=== PATIENT | male | born 1985 | race Caucasian/White ===

== ENCOUNTER 2020-10-21 00:41 | Emergency (ER) | payer BC ==
--- NOTE | 2020-10-21 00:52 | EDM.PDOC ---
ED HPI GENERAL MEDICAL PROBLEM - General Chief Complaint: Neurological Problem Stated Complaint: ananth amb Time Seen by Provider: 10/21/20 00:46 Source of Information: Reports: Patient, EMS History Limitations: Reports: No Limitations - History of Present Illness INITIAL COMMENTS - FREE TEXT/NARRATIVE: This is a 35-year-old male. Apparently he was found in his car sleeping in the middle of an intersection. The ambulance was called because he was confused when they woke him up and not making a lot of sense when he was talking. When the ambulance brought him here he appears to be groggy though he does not have significantly slurred speech. He is able to give us the month and the year and the day. 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 He denies any alcohol or drug use. He denies any pain or symptoms to speak of. - Related Data Allergies Allergy/AdvReac Type Severity Reaction Status Date / Time No Known Allergies Allergy Verified 12/27/19 17:36 CDT Home Meds: Home Meds . [No Known Home Meds] 04/26/16 [History] Past Medical History - Past Health History Medical/Surgical History: Denies Medical/Surgical History Psychiatric History: Reports: Depression Other Psychiatric History: Uses steroid injections for muscle growth and body building - Infectious Disease History Infectious Disease History: Reports: Chicken Pox Social & Family History - Family History Family Medical History: No Pertinent Family History - Caffeine Use Caffeine Use: Reports: Coffee ED ROS GENERAL - Review of Systems Review Of Systems: See Below Constitutional: Denies: Fever, Chills HEENT: Reports: No Symptoms Respiratory: Denies: Shortness of Breath, Cough Cardiovascular: Reports: No Symptoms Endocrine: Reports: No Symptoms GI/Abdominal: Denies: Abdominal Pain : Reports: No Symptoms Musculoskeletal: Reports: Other (Muscle aching from working out) Skin: Reports: No Symptoms Neurological: Reports: Confusion. Denies: Headache Psychiatric: Reports: Confusion - Physical Exam Exam: See Below Exam Limited By: Altered Mental Status General Appearance: Alert, WD/WN, No Apparent Distress, Lethargic Eye Exam: Bilateral Eye: Normal Inspection, Other ('s are midsized with minimal reaction) Ears: Normal External Exam, Normal Canal, Normal TMs Nose: Normal Inspection Throat/Mouth: Normal Inspection, Normal Lips, Normal Voice, No Airway Compromise Head Exam: Normocephalic Neck: Supple Respiratory/Chest: No Respiratory Distress, Lungs Clear, Normal Breath Sounds Cardiovascular: Regular Rate, Rhythm, No Murmur GI/Abdominal: Soft, Non-Tender Neuro Exam (Abbreviated): Alert, Oriented, Confused, Slow to Respond, Other (He seems confused it at the same time he is able to carry on a conversation. He does have slow speech pattern.) Back Exam: Full Range of Motion Extremities: Normal Inspection, Normal Range of Motion, Other (The patient is somewhat clumsy when attempting to stand or use his arms or take off his shirt but he uses his arms and legs symmetrically.) Psychiatric: Flat Affect Skin Exam: Warm, Dry Course - Vital Signs Last Recorded V/S: Last Vital Signs Temp 98.9 F 10/21/20 00:50 Pulse 88 10/21/20 00:50 Resp 16 10/21/20 00:50 BP 123/93 H 10/21/20 00:50 Pulse Ox 95 10/21/20 00:50 - Orders/Labs/Meds Orders: Active Orders 24 hr Category Date Time Status UA W/MICROSCOPIC [URIN] Stat Lab 10/21/20 03:20 Results Sodium Chloride 0.9% [Normal Saline] 1,000 ml Med 10/21/20 01:00 Active IV ASDIRECTED Medication Orders Sodium Chloride (Normal Saline) 1,000 mls @ 1,000 mls/hr IV ASDIRECTED MARIE Last Admin: 10/21/20 00:55 Dose: 1,000 mls/hr Documented by: SONAL Labs: Laboratory Tests 10/21/20 10/21/20 10/21/20 Range/Units 00:50 00:50 00:50 WBC 6.94 (4.23-9.07) K/mm3 RBC 5.56 (4.63-6.08) M/mm3 Hgb 16.1 (13.7-17.5) gm/dl Hct 49.4 (40.1-51.0) % MCV 88.8 (79.0-92.2) fl MCH 29.0 (25.7-32.2) pg MCHC 32.6 (32.2-35.5) g/dl RDW Std Deviation 46.4 H (35.1-43.9) fL Plt Count 216 (163-337) K/mm3 MPV 8.5 L (9.4-12.3) fl Neut % (Auto) 66.0 (34.0-67.9) % Lymph % (Auto) 20.5 L (21.8-53.1) % [place] % (Auto) 9.1 (5.3-12.2) % Eos % (Auto) 4.0 (0.8-7.0) Baso % (Auto) 0.3 (0.1-1.2) % Neut # (Auto) 4.58 (1.78-5.38) K/mm3 Lymph # (Auto) 1.42 (1.32-3.57) K/mm3 [place] # (Auto) 0.63 (0.30-0.82) K/mm3 Eos # (Auto) 0.28 (0.04-0.54) K/mm3 Baso # (Auto) 0.02 (0.01-0.08) K/mm3 Sodium 143 (136-145) mEq/L Potassium 4.2 (3.5-5.1) mEq/L Chloride 106 (98-107) mEq/L Carbon Dioxide 30 (21-32) mEq/L Anion Gap 11.2 (5-15) BUN 21 H (7-18) mg/dL Creatinine 1.6 H (0.7-1.3) mg/dL Est Cr Clr Drug Dosing TNP Estimated GFR (MDRD) 50 (>60) mL/min BUN/Creatinine Ratio 13.1 L (14-18) Glucose 93 (74-106) mg/dL POC Glucose (70-105) mg/dL Calcium 8.9 (8.5-10.1) mg/dL Total Bilirubin 0.5 (0.2-1.0) mg/dL AST 34 (15-37) U/L ALT 57 (16-63) U/L Alkaline Phosphatase 59 (46-116) U/L Total Protein 7.1 (6.4-8.2) g/dl Albumin 3.6 (3.4-5.0) g/dl Globulin 3.5 gm/dL Albumin/Globulin Ratio 1.0 (1-2) Urine Color (Yellow) Urine Appearance (Clear) Urine pH (5.0-8.0) Ur Specific [place] (1.005-1.030) Urine Protein (Negative) Urine Glucose (UA) (Negative) Urine Ketones (Negative) Urine Occult Blood (Negative) Urine Nitrite (Negative) Urine Bilirubin (Negative) Urine Urobilinogen (0.2-1.0) Ur Leukocyte Esterase (Negative) Urine Opiates Screen (ARBKGP=326) Ur Buprenorphine Scrn (CUTOFF=10) Ur Oxycodone Screen (PZL3NS=483) Urine Methadone Screen (SMA8GS=021) Ur Propoxyphene Screen (KKWBVO=768) Ur Barbiturates Screen (IEIKCM=081) Ur Tricyclics Screen (SPPWPT=285) Ur Phencyclidine Scrn (CUTOFF=25) Ur Amphetamine Screen (KIEZRT=530) U Methamphetamines Scrn (IHVLCS=093) U Benzodiazepines Scrn (NQFXCJ=262) U Cocaine Metab Screen (WCGGTX=709) U Marijuana (THC) Screen (CUTOFF=50) Ethyl Alcohol 0.00 (0.00) gm% 10/21/20 10/21/20 10/21/20 Range/Units 00:51 03:20 03:20 WBC (4.23-9.07) K/mm3 RBC (4.63-6.08) M/mm3 Hgb (13.7-17.5) gm/dl Hct (40.1-51.0) % MCV (79.0-92.2) fl MCH (25.7-32.2) pg MCHC (32.2-35.5) g/dl RDW Std Deviation (35.1-43.9) fL Plt Count (163-337) K/mm3 MPV (9.4-12.3) fl Neut % (Auto) (34.0-67.9) % Lymph % (Auto) (21.8-53.1) % [place] % (Auto) (5.3-12.2) % Eos % (Auto) (0.8-7.0) Baso % (Auto) (0.1-1.2) % Neut # (Auto) (1.78-5.38) K/mm3 Lymph # (Auto) (1.32-3.57) K/mm3 [place] # (Auto) (0.30-0.82) K/mm3 Eos # (Auto) (0.04-0.54) K/mm3 Baso # (Auto) (0.01-0.08) K/mm3 Sodium (136-145) mEq/L Potassium (3.5-5.1) mEq/L Chloride (98-107) mEq/L Carbon Dioxide (21-32) mEq/L Anion Gap (5-15) BUN (7-18) mg/dL Creatinine (0.7-1.3) mg/dL Est Cr Clr Drug Dosing Estimated GFR (MDRD) (>60) mL/min BUN/Creatinine Ratio (14-18) Glucose (74-106) mg/dL POC Glucose 99 (70-105) mg/dL Calcium (8.5-10.1) mg/dL Total Bilirubin (0.2-1.0) mg/dL AST (15-37) U/L ALT (16-63) U/L Alkaline Phosphatase (46-116) U/L Total Protein (6.4-8.2) g/dl Albumin (3.4-5.0) g/dl Globulin gm/dL Albumin/Globulin Ratio (1-2) Urine Color Yellow (Yellow) Urine Appearance Clear (Clear) Urine pH 6.0 (5.0-8.0) Ur Specific [place] > or = 1.030 (1.005-1.030) Urine Protein 1+ H (Negative) Urine Glucose (UA) Negative (Negative) Urine Ketones Negative (Negative) Urine Occult Blood Negative (Negative) Urine Nitrite Negative (Negative) Urine Bilirubin Negative (Negative) Urine Urobilinogen 0.2 (0.2-1.0) Ur Leukocyte Esterase Negative (Negative) Urine Opiates Screen Negative (XKSIVD=952) Ur Buprenorphine Scrn Negative (CUTOFF=10) Ur Oxycodone Screen Negative (MET8YW=655) Urine Methadone Screen Negative (FRC0GN=429) Ur Propoxyphene Screen Negative (JEXUBY=144) Ur Barbiturates Screen Negative (PRUKOG=512) Ur Tricyclics Screen Negative (RJBVSF=361) Ur Phencyclidine Scrn Negative (CUTOFF=25) Ur Amphetamine Screen Negative (OGLAKS=113) U Methamphetamines Scrn Presumptive positive H (YPXOYQ=555) U Benzodiazepines Scrn Negative (DOMRKD=984) U Cocaine Metab Screen Negative (ZVYLCB=042) U Marijuana (THC) Screen Negative (CUTOFF=50) Ethyl Alcohol (0.00) gm% Meds: Medications Generic Name Dose Route Start Last Admin Trade Name Deepali PRN Reason Stop Dose Admin Sodium Chloride 1,000 mls @ 1,000 mls/hr 10/21/20 01:00 10/21/20 00:55 Normal Saline IV 1,000 mls/hr ASDIRECTED [facility] Administration - Re-Assessments/Exams Free Text/Narrative Re-Assessment/Exam: 10/21/20 01:08 The patient fell asleep during triage. He awoke easily. He has now fallen asleep again and is snoring. 10/21/20 02:54 Patient has been sleeping peacefully this entire time. His CBC came back normal. His CMP showed some mild prerenal azotemia, rest of it was normal. Departure - Departure Time of Disposition: 04:09 Disposition: Home, Self-Care 01 Condition: Fair Clinical Impression: Methamphetamine use, Confusion, Exhaustion - Discharge Information *PRESCRIPTION DRUG MONITORING PROGRAM REVIEWED*: Not Applicable *COPY OF PRESCRIPTION DRUG MONITORING REPORT IN PATIENT MARY: Not Applicable Instructions: Methamphetamines Use Disorder Forms: ED Department Discharge, ED Return to Work/School Form Additional Instructions: Go home and sleep, stop using methamphetamine, if you want help to stop using drugs call [facility] [phone], return to the ER if needed Sepsis Event Note (ED) - Focused Exam Vital Signs: Vital Signs Temp Pulse Resp BP Pulse Ox 10/21/20 00:50 98.9 F 88 16 123/93 H 95 - My Orders Last 24 Hours: My Active Orders 10/21/20 01:00 Sodium Chloride 0.9% [Normal Saline] 1,000 ml IV ASDIRECTED 10/21/20 03:20 UA W/MICROSCOPIC [URIN] Stat - Assessment/Plan Last 24 Hours: My Active Orders 10/21/20 01:00 Sodium Chloride 0.9% [Normal Saline] 1,000 ml IV ASDIRECTED 10/21/20 03:20 UA W/MICROSCOPIC [URIN] Stat
[2020-10-21] MEDS ORDERED: Sodium Chloride 0.9% 1,000 ML IV SCH (01:00)
[2020-10-21 01:18] VITALS: BP 123/93; PULSE 88
== END 2020-10-21 04:16 | disposition home or self-care (01) ==
LOC: JD.ED 00:41
DX: R41.0 Disorientation, unspecified (principal); R53.83 Other fatigue; F15.90 Other stimulant use, unspecified, uncomplicated
CPT/HCPCS: 36415; 80053; 80179; 80306; 81001; 82962; 85025; 99285; J7030; 99283